=== PATIENT | female | born 1990 | race Caucasian/White ===

== ENCOUNTER 2018-08-03 07:05 | Inpatient (IN) | payer MEDICAID ==
[2018-08-03] VITALS (56 sets, daily range): BP systolic 62–147; BP diastolic 50–94
[~2018-08-03] VITALS: Ht 167.6 cm; Wt 74.0 kg
--- NOTE | 2018-08-03 07:00 | NUR ---
YOGESH KEITH presented to unit via AMBULATION from HOME, accompanied by , with c/o INDUCTION. YOGESH KEITH weighed, gowned, voided, and to bed. EFHM and TOCO applied, VS taken. YOGESH KEITH oriented to bed controls, call light, TV, heat, and A/C controls.
[~2018-08-03 07:05] MED LIST: ACET1TAB43 PO; DOCU100C37 PO; DOXY1TAB3 PO; FERR325T18 PO; IBUP-1773 PO; PREN-148 PO
--- OUTSIDE RECORDS SUMMARY | 2018-08-03 07:08 | XMS REPORT ---
Author Author Sonia Fuentes Organization [facility] Address [address] [place], [place] [id number] Care Team Providers Care Informatics Coordinator Name Role Phone Sonia Fuentes PCP Unavailable Allergies and Adverse Reactions Name Reaction Notes NO KNOWN DRUG ALLERGIES Plan of Treatment Not available. Medications Active Name Start Date Estimated Completion Date SIG Comments Bactrim DS 800-160 mg oral tablet 04/06/2017 take 1 tablet by oral route every 12 hours for 10 days cephalexin 500 mg oral capsule 04/09/2017 take 1 capsule (500 mg) by oral route every 12 hours for 10 days hydroxyzine pamoate 25 mg oral capsule 04/09/2017 take 1 capsule (25 mg) by oral route at HS x 7 days Name Start Date Expiration Date SIG Comments Zithromax Z-Sachin 250 mg oral tablet 08/29/2013 09/03/2013 take 2 tablets (500 mg) by oral route once daily for 1 day then 1 tablet (250 mg) by oral route once daily for 4 days Ortho Evra 150-35 mcg/24 hr transdermal patch weekly 06/05/2014 02/12/2015 apply 1 patch by transdermal route once weekly for 3 weeks each month Discontinued Name Start Date Discontinued Date SIG Comments PNV- OTC 08/17/2012 03/14/2013 1 PO qdaily Depo-Provera 150 mg/mL intramuscular suspension 03/07/2013 02/13/2014 inject 150 mg by intramuscular route every 3 months promethazine-codeine 6.25-10 mg/5 mL oral syrup 08/29/2013 11/07/2013 take 5 milliliters by oral route every 4-6 hours as needed, not to exceed 30 mL in 24 hours Women's Complex oral tablet 04/06/2017 NuvaRing 0.12-0.015 mg/24 hr vaginal ring 11/14/2013 06/05/2014 insert 1 vaginal ring by vaginal route once a month leave in place for 3 weeks, remove for 1 week Problem List Not available. Vital Signs Date Time BP-Sys(mm[Hg] BP-Rula(mm[Hg]) HR(bpm) RR(rpm) Temp WT HT HC BMI BSA BMI Percentile O2 Sat(%) 04/09/2017 11:54:00 AM 112 mmHg 70 mmHg 94 bpm 18 rpm 98.2 F 148 lbs 66 in 23.89 kg/m2 1.77 m2 97 % 04/06/2017 6:10:00 PM 122 mmHg 82 mmHg 75 bpm 18 rpm 98.4 F 148 lbs 66 in 23.8876 kg/m 1.7681 m 99 % 06/05/2014 1:29:00 PM 112 mmHg 60 mmHg 98 bpm 97.9 F 145 lbs 66 in 23.40 kg/m2 1.75 m2 02/13/2014 4:28:00 PM 127 mmHg 85 mmHg 86 bpm 97.9 F 143 lbs 66 in 23.0806 kg/m 1.738 m 11/14/2013 1:53:00 PM 129 mmHg 75 mmHg 69 bpm 97.7 F 148 lbs 66 in 23.89 kg/m2 1.77 m2 11/07/2013 2:01:00 PM 116 mmHg 70 mmHg 68 bpm 98.4 F 146 lbs 66 in 23.5648 kg/m 1.7561 m 09/20/2013 6:34:00 PM 122 mmHg 78 mmHg 114 bpm 18 rpm 97.9 F 145 lbs 66 in 23.40 kg/m2 1.75 m2 99 % 08/29/2013 1:26:00 PM 135 mmHg 86 mmHg 94 bpm 97.8 F 149 lbs 66 in 24.049 kg/m 1.774 m 08/29/2013 11:21:00 AM 126 mmHg 64 mmHg 110 bpm 8 rpm 97.7 F 149.125 lbs 66 in 24.07 kg/m2 1.77 m2 99 % 05/31/2013 2:24:00 PM 136 mmHg 81 mmHg 76 bpm 97.4 F 143 lbs 66 in 23.0806 kg/m 1.738 m 03/14/2013 4:07:00 PM 136 mmHg 82 mmHg 96 bpm 97.6 F 141 lbs 66 in 22.76 kg/m2 1.73 m2 08/17/2012 11:04:00 AM 120 mmHg 70 mmHg 76 bpm 130 lbs 66 in 20.9823 kg/m 1.6571 m Social History Name Description Comments Alcohol Current some day Rarely Tobacco Current every day smoker History of Procedures Date Ordered Description Order Status 04/06/2017 12:00 AM CUL BACT XCPT URINE BLOOD/STOOL AEROBIC ISOL Reviewed 08/17/2012 12:00 AM URINE TEST Reviewed 08/17/2012 12:00 AM CYTOPATH C/V THIN LAYER Reviewed 08/17/2012 12:00 AM SPECIMEN HANDLING OFFICE-LAB Reviewed 08/17/2012 12:00 AM N.GONORRHOEAE DNA AMP PROB Reviewed 08/17/2012 12:00 AM CHLAMYDIA CULTURE Reviewed 08/17/2012 12:00 AM OBSTETRIC PANEL Reviewed 08/17/2012 12:00 AM HIV-1ANTIBODY Reviewed 08/17/2012 12:00 AM URINALYSIS AUTO W/SCOPE Reviewed 08/17/2012 12:00 AM OB US < 14 WKS SINGLE FETUS Reviewed 09/21/2012 12:00 AM OB US >/=14 WKS SNGL FETUS Reviewed 09/07/2012 12:00 AM ALPHA-FETOPROTEIN SERUM Reviewed 11/16/2012 12:00 AM GLUCOSE TEST Reviewed 11/16/2012 12:00 AM COMPLETE CBC W/AUTO DIFF WBC Reviewed 11/16/2012 12:00 AM Rhogam Reviewed 11/16/2012 12:00 AM Type and screen Reviewed 01/11/2013 12:00 AM CULTURE OTHR SPECIMN AEROBIC Reviewed 03/14/2013 12:00 AM THER/PROPH/DIAG INJ SC/IM Reviewed 05/31/2013 12:00 AM THER/PROPH/DIAG INJ SC/IM Reviewed 08/29/2013 12:00 AM THER/PROPH/DIAG INJ SC/IM Reviewed 08/29/2013 12:00 AM Decadron, Per 1 Mg [facility]# [address]-26 Reviewed 08/29/2013 12:00 AM Depo-Medrol, Per 80 Mg [facility]#3595-9376-70 Reviewed 08/29/2013 12:00 AM THER/PROPH/DIAG INJ SC/IM Reviewed 09/20/2013 12:00 AM THER/PROPH/DIAG INJ SC/IM Reviewed 09/20/2013 12:00 AM Phenergan, Up to 50 Mg [facility]#5720-5466-71 Reviewed 11/07/2013 12:00 AM ASSAY OF ESTROGEN Reviewed 11/07/2013 12:00 AM ASSAY OF ESTRADIOL Reviewed 11/07/2013 12:00 AM ASSAY OF GONADOTROPIN (FSH) Reviewed 11/07/2013 12:00 AM ASSAY THYROID STIM HORMONE Reviewed 11/07/2013 12:00 AM ASSAY OF FREE TESTOSTERONE Reviewed 11/07/2013 12:00 AM ASSAY OF TOTAL TESTOSTERONE Reviewed 11/07/2013 12:00 AM ASSAY OF PROLACTIN Reviewed 06/05/2014 1:44 PM URINE TEST Reviewed Results Summary Date and Description Results 08/17/2012 3:18 PM WBC 9.0 RBC 4.33 HGB 13.0 g/dLHCT 36.60 %MCV 85.0 fLMCH 30.0 pgMCHC 35.50 g/dLRDW SD 41 RDW CV 13.60 %MPV 9.60 fLPLT 277 NRBC# 0.00 NRBC % 0.0 %NEUT 68.90 %%LYMP 21.80 %%MONO 6.0 %%EOS 3.10 %%BASO 0.20 %#NEUT 6.20 # LYMP 1.96 #MONO 0.54 #EOS 0.28 #BASO 0.02 MANUAL DIFF NOT IND COLOR YELLOW APPEARANCE CLOUDY SPEC GRAV 1.015 pH 7.0 PROTEIN NEGATIVE GLUCOSE NEGATIVE KETONE NEGATIVE BILIRUBIN NEGATIVE BLOOD NEGATIVE NITRITE NEGATIVE LEUK SCREEN NEGATIVE WBC/HPF RARE RBC/HPF NEGATIVE CASTS/LPF NEGATIVE CRYSTALS 3+++ AMORPHOUS MUCOUS THRDS FEW BACTERIA FEW EPITH CELLS 1+ SQUAMOUS TRICHOMONAS NEGATIVE YEAST NEGATIVE CULT ORDERED YES HIV AG/AB COMBO 0.21 11/16/2012 12:00 PM WBC 10.7 RBC 3.81 HGB 11.60 g/dLHCT 34.20 %MCV 90.0 fLMCH 30.40 pgMCHC 33.90 g/dLRDW SD 39 RDW CV 12.30 %MPV 10.10 fLPLT 286 NRBC# 0.00 NRBC% 0.0 %NEUT 71.0 %%LYMP 18.80 %%MONO 6.90 %%EOS 2.80 %%BASO 0.50 %#NEUT 7.62 #LYMP 2.02 #MONO 0.74 #EOS 0.30 #BASO 0.05 MANUAL DIFF NOT IND ABO/Rh Type O Negative Antibody Screen-Gel Negative Volume 300 Quantity 1 Product Identification Rh Immune Globulin Lot Number [id number] 11/07/2013 3:26 PM ESTRADIOL <10 pg/mLTSH 1.310 uIU/mLFSH 5.30 mIU/mLProlactin 4.70 ng/mLTestosterone, Serum 4.0 ng/dLTestosterone,Free 0.06 ng/dL% Free Testosterone 1.480 %Estrogens, Total 30.0 pg/mL 06/05/2014 1:44 PM HCG Ur Ql negative 04/06/2017 7:40 PM SPECIMEN SOURCE: INSECT BITE ON SKIN History Of Immunizations Not available. History of Past Illness Name Date of Onset Comments *No known medical problems , First Normal Aug 17 2012 12:13PM test confirmed positive Aug 17 2012 11:15AM , First Normal Sep 07 2012 10:30AM , First Normal Nov 16 2012 10:50AM Rh Incompatibility Nov 16 2012 10:50AM Group B Strep Screening, Jan 11 2013 10:40AM Follow-up, Routine Mar 14 2013 4:12PM Contraceptive Counseling Mar 14 2013 4:12PM Contraceptive counseling (Depo-Provera) Mar 14 2013 4:55PM Contraceptive counseling (Depo-Provera) May 31 2013 2:34PM Contraceptive counseling (Depo-Provera) Aug 29 2013 1:35PM Upper Respiratory Infections Aug 29 2013 11:23AM Diarrhea Sep 20 2013 6:38PM Nausea Sep 20 2013 6:38PM Decreased libido Nov 07 2013 2:07PM Contraceptive Counseling Nov 14 2013 2:01PM Decreased libido Nov 14 2013 2:01PM Contraceptive Counseling Feb 13 2014 4:33PM Abnormal Uterine Bleeding Jun 05 2014 1:44PM Contraceptive Counseling Jun 05 2014 1:44PM Secondary infection of skin Apr 06 2017 6:13PM Bitten or stung by nonvenomous insect and other nonvenomous arthropods, initial encounter Apr 06 2017 6:13PM Payers Insurance Name Company Name Plan Name Plan Number Policy Number Policy Group Number Start Date Med-Pay Med-Pay [id number] N/A [facility] [id number] N/A [employer] [facility] [id number] N/A History of Encounters Visit Date Visit Type Provider 04/09/2017 Office visit Sonia Fuentes UNIT SECY 04/06/2017 Office visit Sonia Fuentes UNIT SECY 06/05/2014 Office visit Toby Mack MD 02/13/2014 Office visit Toby Mack MD 11/14/2013 Nurse visit Toby Mack MD 11/07/2013 Office visit Cherise Pappas UNIT SECY 09/20/2013 Office visit Tam Bar UNIT SECY 08/29/2013 Nurse visit Toby Mack MD 08/29/2013 Office visit Elaina Perez UNIT SECY 05/31/2013 Nurse visit Toby Mack MD 03/14/2013 Office visit Toby Mack MD 02/06/2013 [facility] Toby Mack MD 02/01/2013 Office visit Toby Mack MD 01/25/2013 Office visit Toby Mack MD 01/18/2013 Office visit Toby Mack MD 01/11/2013 Office visit Toby Mack MD 12/28/2012 Office visit Toby Mack MD 12/14/2012 Office visit Toby Mack MD 11/30/2012 Office visit Toby Mack MD 11/16/2012 Office visit Toby Mack MD 11/02/2012 Office visit Toby Mack MD 10/05/2012 Office visit Toby Mack MD 09/07/2012 Office visit Toby Mack MD 08/17/2012 Office visit Toby Mack MD
--- OUTSIDE RECORDS SUMMARY | 2018-08-03 07:09 | XMS REPORT ---
Author Author Sonia Fuentes Organization [facility] Address [address] [place], [place] [id number] Care Team Providers Care Conductor Symphonic Orchestra Name Role Phone Sonia Fuentes PCP Unavailable [...] 08/29/2013 12:00 AM Decadron, Per 1 Mg [facility]# [address]-09 Reviewed 08/29/2013 12:00 AM Depo-Medrol, Per 80 Mg [facility]#9003-4974-04 Reviewed 08/29/2013 12:00 AM THER/PROPH/DIAG INJ SC/IM Reviewed 09/20/2013 12:00 AM THER/PROPH/DIAG INJ SC/IM Reviewed 09/20/2013 12:00 AM Phenergan, Up to 50 Mg [facility]#0144-8491-90 Reviewed 11/07/2013 12:00 AM ASSAY OF ESTROGEN [...] Product Identification Rh Immune Globulin Lot Number [id number] 11/07/2013 3:26 PM ESTRADIOL <10 pg/mLTSH 1.310 [...] arthropods, initial encounter Apr 06 2017 6:13PM Skin infection Apr 09 2017 11:57AM Payers Insurance Name Company Name Plan Name Plan Number Policy Number Policy Group Number Start Date Med-Pay Med-Pay [id number] N/A [facility] [id number] N/A [facility] [id number] N/A History of Encounters Visit Date Visit Type Provider 04/09/2017 Office visit Sonia Fuentes CREDIT ANALYST 04/06/2017 Office visit Sonia Fuentes CREDIT ANALYST 06/05/2014 Office visit Toby Mack MD 02/13/2014 Office visit Toby Mack MD 11/14/2013 Nurse visit Toby Mack MD 11/07/2013 Office visit Cherise BayEdgar Pappas CREDIT ANALYST 09/20/2013 Office visit Tam Bar CREDIT ANALYST 08/29/2013 Nurse visit Toby Mack MD 08/29/2013 Office visit Elaina Perez CREDIT ANALYST 05/31/2013 Nurse visit Toby Mack MD 03/14/2013 Office visit Toby Mack MD 02/06/2013 [facility] Toby Mack MD 02/01/2013 Office visit Toby [...]
--- OUTSIDE RECORDS SUMMARY | 2018-08-03 07:09 | XMS REPORT | Continuity of Care Document ---
Author Author [facility] Address Unknown Phone Unavailable Allergies Active Description Code Type Severity Reaction Onset Reported/Identified Relationship to Patient Clinical Status Yes No Known Drug Allergies [id number] N/A N/A Yes No Known Drug Allergies [id number] Drug Allergy Unknown N/A 02/10/2016 Medications There is no data. Problems Date Dx Coded Attending Type Code Diagnosis Diagnosed By 02/12/2016 CAROLINA KEYES DO, Ot D62 ACUTE POSTHEMORRHAGIC ANEMIA 02/12/2016 CAROLINA KEYES DO, Ot O48.0 POST-TERM 02/12/2016 CAROLINA KEYES DO, Ot O70.0 FIRST DEGREE PERINEAL LACERATION DURING 02/12/2016 CAROLINA KEYES DO, Ot O90.81 ANEMIA OF THE PUERPERIUM 02/12/2016 CAROLINA KEYES DO, Ot Z37.0 SINGLE LIVE 02/12/2016 CAROLINA KEYES DO, Ot Z3A.40 40 WEEKS GESTATION OF 02/07/2018 S O0930 Supervision of with insufficient care, unspecified trimester 02/07/2018 P Z3201 Encounter for test, result positive 04/13/2018 CAROLINA KEYES DO, Ot Z36.89 ENCOUNTER FOR OTHER SPECIFIED 04/13/2018 CAROLINA KEYES DO, Ot Z3A.21 21 WEEKS GESTATION OF Procedures Code Description Performed By Performed On [id number] REPAIR PERINEUM SKIN, EXTERNAL APPROACH 02/10/2016 [id number] DELIVERY OF PRODUCTS OF CONCEPTION, EXTE 02/10/2016 [id number] INTRODUCE OTH THERAP SUBST IN PERIPH VEI 02/10/2016 Results There is no data. Encounters ACCT No. Visit Date/Time Discharge Status Pt. Type Provider Facility Loc./Unit Complaint [id number] 02/02/2018 11:38:11 02/02/2018 23:59:59 CLS Outpatient Cherise Pappas [id number] 04/09/2017 12:45:34 04/09/2017 23:59:59 CLS Outpatient Sonia Fuentes [id number] 04/06/2017 19:02:39 04/06/2017 23:59:59 CLS Outpatient Sonia Fuentes [id number] 06/05/2014 14:29:05 06/05/2014 23:59:59 CLS Outpatient Toby Mack [id number] 02/13/2014 18:30:10 02/13/2014 23:59:59 CLS Outpatient Toby Mack [id number] 11/14/2013 14:50:54 11/14/2013 23:59:59 CLS Outpatient Toby Mack [id number] 11/07/2013 14:49:40 11/07/2013 23:59:59 CLS Outpatient Cherise Pappas [id number] 09/20/2013 19:31:13 09/20/2013 23:59:59 CLS Outpatient Tam Bar [id number] 08/29/2013 14:23:14 08/29/2013 23:59:59 CLS Outpatient Toby Mack [id number] 08/29/2013 12:15:36 08/29/2013 23:59:59 CLS Outpatient Elaina Perez [id number] 03/30/2018 10:06:00 03/30/2018 23:59:59 CLS Outpatient CAROLINA KEYES DO [facility] RAD [id number] 02/10/2016 07:12:00 02/12/2016 12:30:00 DIS Inpatient CAROLINA KEYES DO [facility] LDRP INDUCTION [id number] 02/02/2018 11:38:11 Document Registration [id number] 04/06/2017 19:45:52 Document Registration
[2018-08-03] MEDS ORDERED: D5 LR IV SOLUTION 1,000 ML IV ONE (07:57)
[2018-08-03] MEDS ORDERED: D5 LR IV SOLUTION 1,000 ML IV SCH (09:06)
[2018-08-03] MEDS ORDERED: OXYTOCIN/NORMAL SALINE 500 ML IV SCH ×2 (09:06→18:08)
[2018-08-03] MEDS ORDERED: OXYTOCIN/NORMAL SALINE 500 ML IV ONE (09:07)
[2018-08-03 09:12] LABS: BASOPHILS % (AUTO) 0 % (0-10); EOSINOPHILS # (AUTO) 0.1 10^3/uL (0.0-0.3); EOSINOPHILS % (AUTO) 1 % (0-10); HEMATOCRIT 32 % (35-52); HEMOGLOBIN 10.6 G/DL (11.5-16.0); LYMPHOCYTES # (AUTO) 2.8 X 10^3 (1.0-4.0); LYMPHOCYTES % (AUTO) 26 % (12-44); MEAN CORPUSCULAR HEMOGLOBIN 31 PG (25-34); MEAN CORPUSCULAR HGB CONC 34 G/DL (32-36); MEAN CORPUSCULAR VOLUME 91 FL (80-99); MEAN PLATELET VOLUME 11.2 FL (7.4-10.4); MONOCYTES # (AUTO) 0.9 X 10^3 (0.0-1.0); MONOCYTES % (AUTO) 8 % (0-12); NEUTROPHILS # (AUTO) 7.2 X 10^3 (1.8-7.8); NEUTROPHILS % (AUTO) 65 % (42-75); PLATELET COUNT 376 10^3/uL (130-400); RED BLOOD COUNT 3.46 10^6/uL (4.35-5.85); RED CELL DISTRIBUTION WIDTH 13.1 % (10.0-14.5); WHITE BLOOD COUNT 11.1 10^3/uL (4.3-11.0)
[2018-08-03] MEDS ORDERED: LIDOCAINE/EPI 2% 1:200,00 (XYLOCAINE) 10 ML VIAL INJ ONE (09:15)
[2018-08-03] MEDS ORDERED: NS IV 1000 ML 1,000 ML ONE (10:54)
[2018-08-03] MEDS ORDERED: NS IV 1000 ML 1,000 ML IV SCH (11:00)
[2018-08-03] MEDS ORDERED: SERT25TA PO (11:32)
[2018-08-03] MEDS ORDERED: GLYB2.5T4 PO (11:34)
[2018-08-03] MEDS ORDERED: LIDOCAINE/EPI 2% 1:200,00 (XYLOCAINE) 10 ML VIAL ONE (11:59)
[2018-08-03] MEDS ORDERED: SUFENTA 0.6MCG/ML BUPIVA 0.125 100 ML ONE (11:59)
[2018-08-03] MEDS ORDERED: FLU QUADRIvalent (5+ YOA) 2018-2019 (AFLURIA) 0.5 ML IM ONE (12:00)
--- NOTE | 2018-08-03 13:10 | NUR ---
ANGELES PATINO here for epidural placement. Procedure explained, consent reviewed and signed by anesthesia. Questions answered to patient's satisfaction. Time out taken to verify correct patient/procedure. Patient up to side of bed, assisted into sitting position. Betadine prep done x3 and sterile drape applied. Local done, see anesthesia record. Test dose given, see anesthesia record for drug and dosage. Epidural catheter secured in place. Epidural placement complete. Assisted back into bed, monitors adjusted. Epidural dosed, see anesthesia record. Epidural of Sufenta/Bupvicaine @__12____cc/hr stated per pump. Patient tolerated procedure well.
[2018-08-03] MEDS ORDERED: fentaNYL INJECTION 100 MCG/2 ML AMP ONE (13:16)
[2018-08-03] MEDS ORDERED: CATHETER FLUSH 10 ML SYR IV SCH ×2 (14:00→22:00)
[2018-08-03] MEDS ORDERED: LACTATED RINGERS 1,000 ML IV SCH (14:06)
[2018-08-03] MEDS ORDERED: diphenhydrAMINE 50 MG/ML INJ (BENADRYL) IV PRN (14:15)
[2018-08-03] MEDS ORDERED: NALOXONE 0.4 MG/ML 1 ML (NARCAN) VIAL IV PRN ×2 (14:15)
[2018-08-03] MEDS ORDERED: ONDANSETRON 4 MG/2 ML (SDV) Z0FRAN IV PRN (14:15)
[2018-08-03] MEDS ORDERED: EPIDURAL (SUFENTA 0.6MCG/ML BUPIVA 0.125%) 100 ML BAG EPI SCH (14:15)
[2018-08-03] MEDS ORDERED: METOCLOPRAMIDE INJ 10 MG/2 ML (REGLAN) IV PRN (14:15)
--- NOTE | 2018-08-03 17:26 | NUR ---
PERICARE COMPLETED, VSS, PAD AND PANTIES APPLIED, PT REPOSITIONED IN BED, EPIDURAL CATHETER REMOVED, BLACK TIP NOTED. INFANT TO MOTHERS ARMS.
--- NOTE | 2018-08-03 17:39 | NUR ---
FFU/2 LT LOCHIA NOTED, PT NURSING ON LT BREAST.
--- NOTE | 2018-08-03 17:42 | NUR ---
PITOCIN X 2 UP. FFU/2 LT LOCHIA NOTED. PT NURSING ON RT BREAST.
--- NOTE | 2018-08-03 18:00 | NUR ---
PT CONTINUES TO BREASTFEED, FFU/2 LT LOCHIA, FAMILY AT BEDSIDE.
[2018-08-03] MEDS ORDERED: TETANUS,DIPTH,PERTUSS P/F (BOOSTRIX) 0.5 ML VIAL IM ONE (18:15)
[2018-08-03] MEDS ORDERED: MEASLES,MUMPS,RUBELLA 1 EA INJ SQ ONE (18:15)
[2018-08-03] MEDS ORDERED: HYDROcodone/APAP 5 MG/325 MG (LORTAB) TAB PO PRN (18:15)
[2018-08-03] MEDS ORDERED: BENZOCAINE/MENTHOL (DERMOPLAST) 56 ML CAN TP PRN (18:15)
[2018-08-03] MEDS ORDERED: WITCH HAZEL(TUCKS) 40 EA JAR TOP PRN (18:15)
--- NOTE | 2018-08-03 18:17 | History & Physical-OB ---
OB - Chief Complaint & HPI Date/Time Date of Admission: Date of Admission: Aug 03, 2018 at 7:05 am Date seen by a Provider: Aug 03, 2018 Time Seen by a Provider: 07:35 Chief Complaint/History OB-Reason for Admission/Chief: Induction of Labor Hx : 3 Hx Para: 2 Expected Date of Delivery: Aug 13, 2018 Gestational Age in Weeks: 38 Gestational Age in Days: 4 Indication for induction: medical complication Admission Nurse Assessment Rev: Yes History of Labs O neg Antibody neg RI RPR NR HBsAg NR HIV NR GC neg GBS neg Allergies and Home Medications Allergies Coded Allergies: No Known Drug Allergies (Unverified , 02/10/16) Home Medications Glyburide 2.5 Mg Tablet, 2.5 MG PO DAILY, (Reported) Sertraline HCl 25 Mg Tablet, 25 MG PO DAILY, (Reported) Patient Home Medication List Home Medication List Reviewed: Yes OB - History Hx of Present Care: Yes Ultrasounds: Normal mid trimester US Obstetrical Complications: Gestational Diabetes Medical Complications: None Obstetrical History Hx Termination: No Hx Multiple Gestation: No Hx Stillbirth: No Hx Complication: No Hx Induced Hypertens: No Hx Maternal Gestational Diabet: No Delivery History Hx Dystocia: No Hx Large For Gestational Age I: No Hx Small for Gestational Age I: No Hx Section: No Hx Vaginal Delivery Post C-Sec: No Hx Blood Disorders: No Adverse Rxn to Tranfusion: No Patient Past Medical History n/a Social History/Family History Recent Infectious Disease Expo: No Alcohol Use: Denies Use Recreational Drug Use: No Immunizations Hepatitis A: No Hepatitis B: Yes Tetanus Booster (TDap): Less than 5yrs OB - Admission Exam Physical Exam Vitals: Vital Signs 08/03/18 08/03/18 08/03/18 13:33 15:10 15:25 Temp 98.5 Pulse 72 Resp 20 B/P (MAP) 62/59 (60) Pulse Ox 100 O2 Delivery Room Air O2 Flow Rate 10.00 HEENT: NCAT Heart: Rhythm Normal Lungs: Clear Abdomen: Gravid Extremities: Normal Reflexes: Normal Cervical Dilatation: 3cm Effacement: 75% Station: -1 Membranes: Intact Heart Rate: 130's Accelerations: Accelerations Present Decelerations: No Decelerations Short Term Variability: Present Chief Electrician Variability: Average (6-25) Contractions on Admission: 6-10 Minutes Apart Intensity: Mild Durand Scoring Tool (Modified) Dilation (cm): 3-4cm (2) Effacement (%): 51-79% (2) Descent/Station: -1,0 (2) Cervix Consistency: Soft (2) Cervix Position: Anterior (2) Add 1 point for: Each previous vaginal delivery (1) Durand Score: 12 Labs Laboratory Tests Test 08/03/18 08:25 Range/Units White Blood Count 11.1 H 4.3-11.0 10^3/uL Red Blood Count 3.46 L 4.35-5.85 10^6/uL Hemoglobin 10.6 L 11.5-16.0 G/DL Hematocrit 32 L 35-52 % Mean Corpuscular Volume 91 80-99 FL Mean Corpuscular Hemoglobin 31 25-34 PG Mean Corpuscular Hemoglobin Concent 34 32-36 G/DL Red Cell Distribution Width 13.1 10.0-14.5 % Platelet Count 376 130-400 10^3/uL Mean Platelet Volume 11.2 H 7.4-10.4 FL Neutrophils (%) (Auto) 65 42-75 % Lymphocytes (%) (Auto) 26 12-44 % Monocytes (%) (Auto) 8 0-12 % Eosinophils (%) (Auto) 1 0-10 % Basophils (%) (Auto) 0 0-10 % Neutrophils # (Auto) 7.2 1.8-7.8 X 10^3 Lymphocytes # (Auto) 2.8 1.0-4.0 X 10^3 Monocytes # (Auto) 0.9 0.0-1.0 X 10^3 Eosinophils # (Auto) 0.1 0.0-0.3 10^3/uL Basophils # (Auto) 0.0 0.0-0.1 10^3/uL OB - Assessment/Plan/Diagnosis Assessment Assessment: induction of labor Admission Dx 28 yo @ 38.4 weeks GDMA2 on glyburide GBS neg Admission Status: Inpatient Order (span 2 midnights) Reason for Inpatient Admission: 28 yo @ 38.4 weeks GDMA2 on glyburide GBS neg Plan Plan: Induction Induction Method: AROM (and pitocin) CAROLINA KEYES DO Aug 03, 2018 6:17 pm
--- NOTE | 2018-08-03 18:22 | OB Labor & Delivery Record ---
L&D History Date of Service Date of Service: Aug 03, 2018 History Expected Date of Delivery: Aug 13, 2018 Gestational Age in Weeks: 38 Hx : 3 Hx Para: 2 Complications Events: Gestational Diabetes, Routine care Operative Indications (Cesarea: N/A-Vaginal Delivery Intrapartal Events: None L&D Stage1 Stage One Onset of Labor - Date: Aug 03, 2018 Monitors and Tracing Monitor Mode: Internal Heart Rate: 125 Monitor Accelerations: Uniform Monitor Decelerations: None Station: -2 Mcc Variability: Average (6-10) Short Term Variability: Present Presentation: Vertex Vital Signs VS - Last 72 Hours, by Label 08/03/18 08/03/18 08/03/18 08/03/18 07:20 07:50 08:30 08:50 Temp 98.1 Pulse 96 87 96 82 Resp 20 20 20 20 B/P (MAP) 135/83 (100) 123/75 (91) 126/94 (105) 108/56 (73) O2 Delivery Room Air Room Air Room Air Room Air 08/03/18 08/03/18 08/03/18 08/03/18 09:15 09:20 09:40 09:50 Pulse 100 90 81 87 Resp 20 20 20 20 B/P (MAP) 132/79 (96) 133/83 (100) 128/77 (94) 134/73 (93) O2 Delivery Room Air Room Air Room Air Room Air 08/03/18 08/03/18 08/03/18 08/03/18 10:05 10:20 10:41 10:50 Pulse 69 65 75 89 Resp 20 20 20 20 B/P (MAP) 123/79 (94) 126/79 (95) 130/83 (99) 128/75 (92) O2 Delivery Room Air Room Air Room Air Room Air 08/03/18 08/03/18 08/03/18 08/03/18 11:05 11:20 11:35 11:50 Pulse 76 89 90 95 Resp 20 20 20 20 B/P (MAP) 126/65 (85) 105/67 (80) 119/72 (88) 115/74 (88) O2 Delivery Room Air Room Air Room Air Room Air 08/03/18 08/03/18 08/03/18 08/03/18 12:05 12:20 12:35 12:55 Temp 98.3 Pulse 74 88 90 99 Resp 20 20 20 20 B/P (MAP) 100/50 (67) 107/54 (71) 110/67 (81) 117/69 (85) O2 Delivery Room Air Room Air Room Air Room Air 08/03/18 08/03/18 08/03/18 08/03/18 13:05 13:30 13:33 13:36 Temp 98.5 Pulse 84 83 79 93 Resp 20 20 20 20 B/P (MAP) 103/59 (74) 142/80 (100) 125/70 (88) 114/61 (78) Pulse Ox 100 100 100 O2 Delivery Room Air Room Air Room Air Room Air 08/03/18 08/03/18 08/03/18 08/03/18 13:39 13:42 13:45 13:50 Pulse 62 65 100 76 Resp 20 20 20 20 B/P (MAP) 117/57 (77) 107/57 (74) 111/57 (75) 147/60 (89) Pulse Ox 100 100 100 100 O2 Delivery Room Air Room Air Room Air Room Air 08/03/18 08/03/18 08/03/18 08/03/18 13:55 14:00 14:05 14:10 Pulse 91 68 75 99 Resp 20 20 20 20 B/P (MAP) 109/74 (86) 117/68 (84) 119/70 (86) 118/69 (85) Pulse Ox 100 100 100 100 O2 Delivery Room Air Room Air Room Air Room Air 08/03/18 08/03/18 08/03/18 08/03/18 14:15 14:20 14:40 14:55 Pulse 78 73 67 64 Resp 20 20 20 20 B/P (MAP) 107/58 (74) 110/56 (74) 118/61 (80) 118/55 (76) Pulse Ox 100 100 100 100 O2 Delivery Room Air Non Rebreather Non Rebreather Non Rebreather O2 Flow Rate 10.00 10.00 10.00 08/03/18 08/03/18 15:10 15:25 Pulse 86 72 Resp 20 20 B/P (MAP) 127/59 (81) 62/59 (60) Pulse Ox 100 100 O2 Delivery Non Rebreather Room Air O2 Flow Rate 10.00 Rupture of Membranes Spontaneous Ruture of Membrane: No Amniotic Membrane Rupture Time: 10:30 Amniotic Membrane Fluid Desc.: Clear Vaginal Bleeding Description: Normal Show Induction/Anesthesia Epidural Cath Placement - Time: 1330 Progress/Notes Pitocin augmentation started at 0800, AROM performed at 1030, patient progressed to complete and +2 station with max dose of 6 mu/min pitocin L&D Stage2 Stage Two Stage II Date: Aug 03, 2018 Monitors and Tracing Monitor Mode: Internal Heart Rate: 125 Monitor Accelerations: Uniform Monitor Decelerations: Variable Mcc Variability: Average (6-10) Short Term Variability: Present Position: Right Occiput Posterior Presentation: Vertex Cord Descript/Complications Cord Vessel Description: 3 Vessels Complications nuchal cord reduced x1 Delivery Type Delivery Method: Spontaneous Vaginal Anterior Shoulder: Left Episiotomy/Perineal Laceration Laceraction(s)/Extensions: Yes Episiotomy Description: Perineal Extension/lac, 2nd degree Sutures Used: Vicryl (3-0 vicryl suture) Condition of Delivery 1 minute Comment: 8 5 minute Comment: 9 Notes live female weight pending Condition of Infant Condition of : Living Exam: No Observed Abnormalities Resuscitation Resuscitation: N/A - Spontaneous Resp L&D Stage3 Stage Three Stage III Date: Aug 03, 2018 Pictocin Pitocin Administration Comment: 30 mu wide open at delivery of placenta Placenta Delivery Placenta Delivery: Spontaneous Delivery Summary Summary Estimated blood loss (mL): 250 Attending at delivery: Carolina Keyes DO Condition of Delivery Examined: Cervix Examined, Uterus Explored Post Hemorrhage: No Condition of Mother stable Condition of (s) stable CAROLINA KEYES DO Aug 03, 2018 6:22 pm
--- NOTE | 2018-08-03 19:07 | NUR ---
FFU/2 LT LOCHIA NOTED, VSS, PT EATING DINNER, NO DISTRESS NOTED, PLAN OF CARE UPDATED.
--- NOTE | 2018-08-03 19:10 | NUR ---
REPORT TO CAROLINE MIXON.
[2018-08-03] MEDS: IBUPROFEN 600 MG (MOTRIN) TAB PO SCH (22:41)
[2018-08-03] MEDS: DOCUSATE SODIUM 100 MG (COLACE) CAP PO SCH (22:41)
[2018-08-04 00:50] VITALS: BP 100/60
[2018-08-04 04:44] VITALS: BP 83/52
[2018-08-04] MEDS: IBUPROFEN 600 MG (MOTRIN) TAB PO SCH ×2 (04:44→11:00)
[2018-08-04 06:06] LABS: BASOPHILS % (AUTO) 0 % (0-10); EOSINOPHILS # (AUTO) 0.2 10^3/uL (0.0-0.3); EOSINOPHILS % (AUTO) 1 % (0-10); HEMATOCRIT 29 % (35-52); HEMOGLOBIN 9.4 G/DL (11.5-16.0); LYMPHOCYTES # (AUTO) 3.3 X 10^3 (1.0-4.0); LYMPHOCYTES % (AUTO) 27 % (12-44); MEAN CORPUSCULAR HEMOGLOBIN 30 PG (25-34); MEAN CORPUSCULAR HGB CONC 32 G/DL (32-36); MEAN CORPUSCULAR VOLUME 92 FL (80-99); MEAN PLATELET VOLUME 10.7 FL (7.4-10.4); MONOCYTES # (AUTO) 1.3 X 10^3 (0.0-1.0); MONOCYTES % (AUTO) 11 % (0-12); NEUTROPHILS # (AUTO) 7.4 X 10^3 (1.8-7.8); NEUTROPHILS % (AUTO) 61 % (42-75); PLATELET COUNT 308 10^3/uL (130-400); RED BLOOD COUNT 3.19 10^6/uL (4.35-5.85); RED CELL DISTRIBUTION WIDTH 12.8 % (10.0-14.5); WHITE BLOOD COUNT 12.2 10^3/uL (4.3-11.0)
[2018-08-04] MEDS ORDERED: PRENATAL VITAMIN 1 EA TAB PO SCH (07:00)
--- NOTE | 2018-08-04 10:22 | Postpartum Progress Note ---
Note Note Day # 1 Subjective: Patient is without complaints. Ambulating, voiding. Tolerating a regular diet without nausea or vomiting. Normal lochia. Pain is well controlled with oral pain medications. Objective: Vital Sign - Last 24 Hours 08/03/18 08/03/18 08/03/18 08/03/18 10:41 10:50 11:05 11:20 Pulse 75 89 76 89 Resp 20 20 20 20 B/P (MAP) 130/83 (99) 128/75 (92) 126/65 (85) 105/67 (80) O2 Delivery Room Air Room Air Room Air Room Air 08/03/18 08/03/18 08/03/18 08/03/18 11:35 11:50 12:05 12:20 Temp 98.3 Pulse 90 95 74 88 Resp 20 20 20 20 B/P (MAP) 119/72 (88) 115/74 (88) 100/50 (67) 107/54 (71) O2 Delivery Room Air Room Air Room Air Room Air 08/03/18 08/03/18 08/03/18 08/03/18 12:35 12:55 13:05 13:30 Pulse 90 99 84 83 Resp 20 20 20 20 B/P (MAP) 110/67 (81) 117/69 (85) 103/59 (74) 142/80 (100) Pulse Ox 100 O2 Delivery Room Air Room Air Room Air Room Air 08/03/18 08/03/18 08/03/18 08/03/18 13:33 13:36 13:39 13:42 Temp 98.5 Pulse 79 93 62 65 Resp 20 20 20 20 B/P (MAP) 125/70 (88) 114/61 (78) 117/57 (77) 107/57 (74) Pulse Ox 100 100 100 100 O2 Delivery Room Air Room Air Room Air Room Air 08/03/18 08/03/18 08/03/18 08/03/18 13:45 13:50 13:55 14:00 Pulse 100 76 91 68 Resp 20 20 20 20 B/P (MAP) 111/57 (75) 147/60 (89) 109/74 (86) 117/68 (84) Pulse Ox 100 100 100 100 O2 Delivery Room Air Room Air Room Air Room Air 08/03/18 08/03/18 08/03/18 08/03/18 14:05 14:10 14:15 14:20 Pulse 75 99 78 73 Resp 20 20 20 20 B/P (MAP) 119/70 (86) 118/69 (85) 107/58 (74) 110/56 (74) Pulse Ox 100 100 100 100 O2 Delivery Room Air Room Air Room Air Non Rebreather O2 Flow Rate 10.00 08/03/18 08/03/18 08/03/18 08/03/18 14:40 14:55 15:10 15:25 Pulse 67 64 86 72 Resp 20 20 20 20 B/P (MAP) 118/61 (80) 118/55 (76) 127/59 (81) 62/59 (60) Pulse Ox 100 100 100 100 O2 Delivery Non Rebreather Non Rebreather Non Rebreather Room Air O2 Flow Rate 10.00 10.00 10.00 08/03/18 08/03/18 08/03/18 08/03/18 15:40 15:55 16:10 16:25 Pulse 84 70 74 76 Resp 20 20 20 20 B/P (MAP) 100/58 (72) 105/62 (76) 110/60 (77) 110/55 (73) Pulse Ox 100 100 100 100 O2 Delivery Room Air Room Air Room Air Room Air 08/03/18 08/03/18 08/03/18 08/03/18 16:40 16:55 17:05 17:20 Temp 98.5 Pulse 79 85 103 125 Resp 20 20 20 20 B/P (MAP) 102/56 (71) 124/72 (89) 118/69 (85) 110/75 (87) Pulse Ox 100 O2 Delivery Room Air Non Rebreather Room Air Room Air O2 Flow Rate 10.00 08/03/18 08/03/18 08/03/18 08/03/18 17:37 17:51 18:06 18:21 Pulse 78 67 67 66 Resp 20 20 20 20 B/P (MAP) 110/65 (80) 116/66 (83) 110/64 (79) 110/62 (78) O2 Delivery Room Air Room Air Room Air Room Air 08/03/18 08/03/18 08/03/18 08/03/18 18:36 18:51 19:07 20:07 Temp 98.7 Pulse 80 67 75 86 Resp 20 20 20 20 B/P (MAP) 117/67 (84) 115/58 (77) 125/70 (88) 141/70 (93) O2 Delivery Room Air Room Air Room Air Room Air 08/03/18 08/03/18 08/04/18 08/04/18 21:09 22:30 00:50 04:44 Temp 98.9 97.4 97.8 Pulse 68 71 64 51 Resp 20 20 18 18 B/P (MAP) 114/58 (76) 116/68 (84) 100/60 (73) 83/52 (62) Pulse Ox 98 98 O2 Delivery Room Air Room Air Room Air Room Air Intake and Output 08/03/18 08/03/18 08/04/18 15:00 23:00 07:00 Intake Total 1300 ml 6500 ml Balance 1300 ml 6500 ml Physical Exam: General - Alert and oriented, no apparent distress Abdomen - Soft, appropriately tender to palpation, non-distended, fundus firm at umbilicus Extremities - no edema, negative Ana's bilaterally Assessment: PPD 1 NVD Acute blood loss anemia Plan: Routine care. Encourage breast feeding. Encourage ambulation. Ferrous sulfate supplementation. Plan for discharge tomorrow Vitals - Labs Vital Signs - I&O Vital Signs Date Time Temp Pulse Resp B/P (MAP) Pulse Ox O2 Delivery O2 Flow Rate FiO2 08/04/18 04:44 97.8 51 18 83/52 (62) 98 Room Air 08/04/18 00:50 97.4 64 18 100/60 (73) 98 Room Air 08/03/18 22:30 98.9 71 20 116/68 (84) Room Air 08/03/18 21:09 68 20 114/58 (76) Room Air 08/03/18 20:07 98.7 86 20 141/70 (93) Room Air 08/03/18 19:07 75 20 125/70 (88) Room Air 08/03/18 18:51 67 20 115/58 (77) Room Air 08/03/18 18:36 80 20 117/67 (84) Room Air 08/03/18 18:21 66 20 110/62 (78) Room Air 08/03/18 18:06 67 20 110/64 (79) Room Air 08/03/18 17:51 67 20 116/66 (83) Room Air 08/03/18 17:37 78 20 110/65 (80) Room Air 08/03/18 17:20 125 20 110/75 (87) Room Air 08/03/18 17:05 98.5 103 20 118/69 (85) Room Air 08/03/18 16:55 85 20 124/72 (89) Non Rebreather 10.00 08/03/18 16:40 79 20 102/56 (71) 100 Room Air 08/03/18 16:25 76 20 110/55 (73) 100 Room Air 08/03/18 16:10 74 20 110/60 (77) 100 Room Air 08/03/18 15:55 70 20 105/62 (76) 100 Room Air 08/03/18 15:40 84 20 100/58 (72) 100 Room Air 08/03/18 15:25 72 20 62/59 (60) 100 Room Air 08/03/18 15:10 86 20 127/59 (81) 100 Non Rebreather 10.00 08/03/18 14:55 64 20 118/55 (76) 100 Non Rebreather 10.00 08/03/18 14:40 67 20 118/61 (80) 100 Non Rebreather 10.00 08/03/18 14:20 73 20 110/56 (74) 100 Non Rebreather 10.00 08/03/18 14:15 78 20 107/58 (74) 100 Room Air 08/03/18 14:10 99 20 118/69 (85) 100 Room Air 08/03/18 14:05 75 20 119/70 (86) 100 Room Air 08/03/18 14:00 68 20 117/68 (84) 100 Room Air 08/03/18 13:55 91 20 109/74 (86) 100 Room Air 08/03/18 13:50 76 20 147/60 (89) 100 Room Air 08/03/18 13:45 100 20 111/57 (75) 100 Room Air 08/03/18 13:42 65 20 107/57 (74) 100 Room Air 08/03/18 13:39 62 20 117/57 (77) 100 Room Air 08/03/18 13:36 93 20 114/61 (78) 100 Room Air 08/03/18 13:33 98.5 79 20 125/70 (88) 100 Room Air 08/03/18 13:30 83 20 142/80 (100) 100 Room Air 08/03/18 13:05 84 20 103/59 (74) Room Air 08/03/18 12:55 99 20 117/69 (85) Room Air 08/03/18 12:35 90 20 110/67 (81) Room Air 08/03/18 12:20 88 20 107/54 (71) Room Air 08/03/18 12:05 98.3 74 20 100/50 (67) Room Air 08/03/18 11:50 95 20 115/74 (88) Room Air 08/03/18 11:35 90 20 119/72 (88) Room Air 08/03/18 11:20 89 20 105/67 (80) Room Air 08/03/18 11:05 76 20 126/65 (85) Room Air 08/03/18 10:50 89 20 128/75 (92) Room Air 08/03/18 10:41 75 20 130/83 (99) Room Air I & O 08/04/18 07:00 Intake Total 7800 ml Balance 7800 ml Labs Laboratory Tests 08/04/18 05:52: White Blood Count 12.2H, Red Blood Count 3.19L, Hemoglobin 9.4L, Hematocrit 29L , Mean Corpuscular Volume 92, Mean Corpuscular Hemoglobin 30, Mean Corpuscular Hemoglobin Concent 32, Red Cell Distribution Width 12.8, Platelet Count 308, Mean Platelet Volume 10.7H, Neutrophils (%) (Auto) 61, Lymphocytes (%) (Auto) 27 , Monocytes (%) (Auto) 11, Eosinophils (%) (Auto) 1, Basophils (%) (Auto) 0, Neutrophils # (Auto) 7.4, Lymphocytes # (Auto) 3.3, Monocytes # (Auto) 1.3H, Eosinophils # (Auto) 0.2, Basophils # (Auto) 0.0 CAROLINA KEYES DO Aug 04, 2018 10:22 am
[2018-08-04] MEDS ORDERED: IBUP-844 PO (10:24)
[2018-08-04] MEDS ORDERED: DOCU100C37 PO (10:24)
[2018-08-04] MEDS ORDERED: ACHD5005 PO (10:24)
--- NOTE | 2018-08-04 10:25 | Discharge Inst-Women's Service ---
Discharge Inst-Women's Serv Depart Medication/Instructions New, Converted or Re-Newed RX: RX on Chart Final Diagnosis PPD 2 NVD Acute blood loss anemia [id number] Consults/Follow Up Additional Follow Up: Yes Orders/Referrals Dr. Keyes in 6 weeks Activity Activity: Activity as Tolerated Driving Instructions: No Driving for 1 Week NO SMOKING: NO SMOKING Nothing Inside Vagina: No Douching, No [place], No Tampons Diet Discharge Diet: No Restrictions Symptoms to Report to : Bleeding Excessive, Pain Increased, Fever Over 101 Degrees F, Vaginal Bleeding Increase, Questions/Concerns For Any Problems or Questions: Contact Your Physician CAROLINA KEYES DO Aug 04, 2018 10:25 am
[2018-08-04 10:30] VITALS: BP 116/63
[2018-08-04] MEDS: DOCUSATE SODIUM 100 MG (COLACE) CAP PO SCH ×2 (11:00→21:59)
--- NOTE | 2018-08-04 20:00 | NUR ---
Shift assessments and VS done at this time. No needs or concerns.
[2018-08-04 20:43] VITALS: BP 113/61
[2018-08-05] MEDS: IBUPROFEN 600 MG (MOTRIN) TAB PO SCH ×2 (04:28→10:30)
[2018-08-05 04:29] VITALS: BP 104/58
[2018-08-05 08:25] VITALS: BP 108/63
[2018-08-05] MEDS: DOCUSATE SODIUM 100 MG (COLACE) CAP PO SCH (08:25)
--- NOTE | 2018-08-05 08:25 | NUR ---
initial shift assessment completed, see interventions for further. POC reviewed, states understanding.
--- NOTE | 2018-08-05 09:30 | NUR ---
here. dismissal orders received.
--- NOTE | 2018-08-05 09:43 | Postpartum Progress Note ---
Note Note Day # 2 Subjective: Patient is without complaints. Ambulating, voiding. Tolerating a regular diet without nausea or vomiting. Normal lochia. Pain is well controlled with oral pain medications. Objective: Physical Exam: General - Alert and oriented, no apparent distress Abdomen - Soft, appropriately tender to palpation, non-distended, fundus firm at umbilicus Extremities - no edema, negative Ana's bilaterally Assessment: PPD 2 NVD Acute blood loss anemia Plan: Routine care. Encourage breast feeding. Encourage ambulation. Ferrous sulfate supplementation. Plan for discharge [] Vitals - Labs Vital Signs - I&O Vital Signs Date Time Temp Pulse Resp B/P (MAP) Pulse Ox O2 Delivery O2 Flow Rate FiO2 08/05/18 04:29 98.1 57 18 104/58 (73) 98 08/04/18 20:43 97.7 57 16 113/61 (78) 99 Room Air 08/04/18 10:30 97.7 59 18 116/63 (80) Room Air CAROLINA KEYES DO Aug 05, 2018 9:43 am
--- NOTE | 2018-08-05 10:30 | NUR ---
dismissal instructions given, verbalizes understanding. see interventions for further.
--- NOTE | 2018-08-05 10:36 | NUR ---
Rx's for Motrin and Colace called into [facility] in [place] per pt's request.
--- NOTE | 2018-08-05 12:00 | NUR ---
pt ambulated to private vehicle with staff members @ side. secured in rear facing car seat. pt stable with no sx's of distress noted.
--- NOTE | 2018-08-05 13:10 | Anesthesia-Regional Post-Op ---
Regional Patient Condition Mental Status: Alert, Oriented x3 Circulation: Same as Pre-Op Headache: Absent Sensation: Full Recovery Motor Block: Absent Post Op Complications Complications None Follow Up Care/Instructions Patient Instructions None needed. Anesthesia/Patient Condition Patient is doing well, no complaints, stable vital signs, no apparent adverse anesthesia problems. No complications reported per nursing. ANGELES GLOVER CRNA Aug 05, 2018 13:10
== END 2018-08-05 12:00 | disposition home or self-care (01) | DRG 806 ==
LOC: LDRP 07:05
PROVIDERS: ADMIT Obstetrics & Gynecology; ATTEND Obstetrics & Gynecology
PROC: 10E0XZZ Delivery of Products of Conception, External Approach (ICD-10-PCS; principal; 2018-08-03)
PROC: 0KQM0ZZ Repair Perineum Muscle, Open Approach (ICD-10-PCS; 2018-08-03)
PROC: 3E033VJ Introduction of Other Hormone into Peripheral Vein, Percutaneous Approach (ICD-10-PCS; 2018-08-03)
DX: O24.425 Gestational diabetes mellitus in childbirth, controlled by oral hypoglycemic drugs (principal); O70.1 Second degree perineal laceration during delivery; O69.81X0 Labor and delivery complicated by cord around neck, without compression, not applicable or unspecified; O90.81 Anemia of the puerperium; D62 Acute posthemorrhagic anemia; Z79.84 Long term (current) use of oral hypoglycemic drugs; Z3A.38 38 weeks gestation of pregnancy; Z37.0 Single live birth; Z87.891 Personal history of nicotine dependence
CPT/HCPCS: 36415; 83033; 85025; 86850; 86900; 86901